=== PATIENT | female | born 1985 | race Asian ===

== ENCOUNTER 2024-05-31 05:40 | Inpatient (IN) ==
--- NOTE | 2024-05-25 08:57 | Anesthesiology Consultation ---
Date of Service May 25, 2024 Assessment & Plan (1) Encounter for pre-operative examination: - Per analyst market intelligence on 05/25/24: No known infectious disease contacts, current infectious disease symptoms in past 10 days or COVID positive test result in the past 30 days. Chart Review Chart Review: entry level sales representative initiated History Surgery Operation Date: 05/31/24 07:30 Proposed Procedures p Section (Delivery of Baby Through Abdominal Incision) - Jocelyne Su MD Height/Weight Height: 5 ft 4 in Weight: 71.214 kg Allergies Allergy/AdvReac Type Severity Reaction Status Date / Time No Known Allergies Allergy Verified 05/25/24 08:20 Medications Home Medications Medication Instructions Recorded Confirmed Last Taken PNV [id number] 1 dose PO QAM 10/17/23 05/25/24 Unknown [ Gummies] acetone (urine) test (Ketone Urine #50 ea 03/15/24 05/21/24 Unknown Test strips) Accu-Chek Guide Glucose Meter #1 ea 03/26/24 05/21/24 Unknown (blood-glucose meter) Accu-Chek Guide test strips (blood #150 ea 03/26/24 05/21/24 Unknown sugar diagnostic) Accu-Chek Softclix Lancets #200 ea 03/26/24 05/21/24 Unknown (lancets) Past Medical History Medical History (Updated 05/25/24 @ 08:55 by Alessandra Thayer PA-C) Gestational diabetes no medications, monitoring Seasonal allergies Past Family History Family History Other No family history of adverse response to anesthesia Denies family history of Ovarian cancer Breast cancer Colorectal cancer Past Surgical History Surgical History S/P section r/t breech present Social History Smoking Status: Never smoker Do You Dip or Chew Tobacco: No Hx Alcohol Use: No Hx Substance Use: No substance use type: does not use
[2024-05-31] MEDS ORDERED: ceFAZolin 2000MG 2,000 MG/15 ML SYR IV SCH (06:00)
[2024-05-31] MEDS ORDERED: LACTATED RINGER'S 1,000 ML IV SCH ×2 (06:00→12:15)
[2024-05-31] MEDS ORDERED: KETOROLAC 30 MG/ML VIAL ONE (06:14)
[2024-05-31] MEDS ORDERED: MoRPHine SULFATE PF 1 MG/ML 10 ML AMP/VIAL ONE (06:14)
[2024-05-31] MEDS ORDERED: fentaNYL citrate PF 100 MCG/2 ML VIAL ONE (06:14)
[2024-05-31] MEDS ORDERED: ONDANSETRON INJ 2 MG/ML 2 ML VIAL ONE (06:14)
[2024-05-31] MEDS ORDERED: OXYTOCIN 10 UNITS/ML VIAL ONE (06:14)
[2024-05-31] MEDS ORDERED: PHENYLEPHRINE HCL 25 MG/250 ML NSS IV ONE (06:14)
[2024-05-31] MEDS: LACTATED RINGER'S 1,000 ML IV SCH ×2 (06:57→19:28)
[2024-05-31] MEDS: ACETAMINOPHEN 500 MG TAB PO SCH (06:57)
[2024-05-31 07:00] LABS: Basophils # (auto) 0.06 K/uL (0.00-0.20); Basophils % (auto) 0.6 %; Eosinophils # (auto) 0.28 K/uL (0.00-0.50); Eosinophils % (auto) 2.8 %; Hematocrit (blood only) 35.2 % (37.0-47.0); Hemoglobin 11.9 g/dl (12.0-16.0); Immature Granulocytes # (auto) 0.09 K/uL (0.01-0.20); Immature Granulocytes % (auto) 0.9 %; Lymphocytes # (auto) 2.17 K/uL (1.20-3.40); Lymphocytes % (auto) 21.7 %; Mean Corpuscular Hemoglobin 31.1 pg (25.0-34.0); Mean Corpuscular Hgb Conc 33.8 g/dL (32.0-36.0); Mean Corpuscular Volume 91.9 fL (80.0-100.0); Monocytes # (auto) 0.76 K/uL (0.11-0.59); Monocytes % (auto) 7.6 %; Neutrophils # (auto) 6.66 K/uL (1.40-6.50); Neutrophils % (auto) 66.4 %; Platelet Count 265 K/uL (130-400); RDW Coefficient of Variation 13.2 % (11.5-14.5); RDW Standard Deviation 43.9 fL (36.4-46.3); Red Blood Count 3.83 M/uL (4.20-5.40); White Blood Count 10.02 K/ul (4.8-10.8)
--- NOTE | 2024-05-31 07:22 | History & Physical Bridge Note ---
Date of Service May 31, 2024 History & Physical Bridge Note I have examined the patient, reviewed the History & Physical and in the interval since the performance of the History & Physical I have noted the following changes of clinical significance: no changes noted
[2024-05-31] MEDS: ceFAZolin 2,000 MG in SYRINGE 0 ML IV SCH (07:26)
[2024-05-31] MEDS: CITRIC ACID/SODIUM CITRATE 15 ML UDC PO SCH (07:26)
[2024-05-31] MEDS ORDERED: DEXAMETHASONE SOD INJ 4 MG/ML VIAL ONE (07:53)
[2024-05-31] MEDS ORDERED: ePHEDrine sulfate 50 MG/5 ML SYR ONE (07:53)
[2024-05-31] MEDS ORDERED: NALOXONE HCL 1 MG in SODIUM CHLORIDE 0.9% 1,000 ML IV PRN (07:54)
[2024-05-31] MEDS ORDERED: NALOXONE HCL 0.4 MG/1 ML VIAL/CARP IV PRN (07:54)
[2024-05-31] MEDS ORDERED: NALOXONE HCL 0.08 MG in SYRINGE 1.8 ML IV PRN (07:54)
[2024-05-31] MEDS ORDERED: diphenhydrAMINE 50 MG/ML VIAL IV PRN (07:54)
[2024-05-31] MEDS ORDERED: PROMETHAZINE 6.25 MG/50.25 ML BAG IV PRN (07:54)
[2024-05-31] MEDS ORDERED: NALBUPHINE HCL INJ 10 MG/ML AMP IV PRN (07:54)
[2024-05-31] MEDS ORDERED: ePHEDrine sulfate 50 MG/ML AMP IV PRN (07:54)
[2024-05-31] MEDS ORDERED: ONDANSETRON INJ 2 MG/ML 2 ML VIAL IV PRN (07:54)
[2024-05-31] MEDS ORDERED: HYDROmorphone INJ 0.5 MG/0.5 ML SYR IV PRN (07:54)
[2024-05-31] MEDS ORDERED: NO NARCOTICS OR SEDATIVES SCH (08:00)
[2024-05-31] MEDS ORDERED: DC INTRASPINAL MORPHINE SCH (08:00)
--- NOTE | 2024-05-31 08:22 | Operative Report ---
Post Operative Report Pre & Post Diagnosis Operation Date: 05/31/24 07:30 Pre-Op Diagnosis: History of Section Post-Op Diagnosis: History of Section; desire for repeat section I identified the patient and participated in the time-out.: Yes Procedure Operation Date: 05/31/24 07:30 Actual Procedures Low Transverse Repeat Section; delivery of live female at 0755 - Jocelyne Su MD Surgeon Jocelyne Su MD Vice President Quality Improvement Cony Quantitative Blood Loss (QBL) 329 Findings Consistent with Post-Op Diagnosis Specimens Placenta, cord blood Anesthesia Type Spinal Complications none Disposition Accompanied Patient To Recovery: Yes Disposition: L&D Description of Procedure The patient was placed operating table in the supine position with a leftward tilt. She was prepped and draped in standard sterile fashion. The anesthetic was tested and found to be adequate. A time-out was held, identifying correct patient, procedure, positioning and preoperative antibiotics. There were no concerns. A Pfannenstiel skin incision was made with a knife and taken down to the underlying layer of fascia, excising the existing cicatrix. The fascia was incised in the midline with the knife and taken out laterally with scissors. The superior edge of the fascial incision was grasped, elevated and dissected off the underlying rectus both superiorly and inferiorly. The muscles were bluntly in the midline. The peritoneum was entered bluntly. The incision was then stretched. The bladder retractor was placed. The vesicouterine peritoneum was identified, entered with scissors and taken out laterally with scissors. The bladder flap was created digitally. A hysterotomy incision was created transversely in the lower uterine segment, final entry being accomplished in a blunt manner with the loop machine operator's fingers. The lower uterine segment myometrium was notably thin; a single swipe with the scalpel exposed amnion. Clear amniotic fluid was encountered. The loop machine operator's hand was used to elevate the head to the hysterotomy. The head was delivered using mild fundal pressure, and the shoulders and body followed without difficulty. The cord was clamped and cut and the infant was then handed off to the awaiting bobbin marker. Cord blood was obtained. The placenta was Manually extracted. The uterus was exteriorized and cleared of all clot and debris with moistened laparotomy sponges. The hysterotomy incision was repaired in two layers, the first in a running locked layer, the second in an imbricating layer. The ovaries and tubes were seen to be normal bilaterally. The uterus was gently replaced in the abdomen, and the gutters were cleared of clot and debris. A final inspection of the hysterotomy revealed good hemostasis. The rectus muscles were allowed to reapproximate naturally. The fascia was then reapproximated with 1 Vicryl in a running nonlocked manner. The fascia was examined and found to be free of defect following closure. The marquez bcutaneous tissue was copiously irrigated and reapproximated with 0-chromic, then the skin edges were closed with 4-0 monocryl in a subcuticular fashion. A dermabond dressing was applied. The nolan was found to be draining clear yellow urine at completion of the procedure. I attest to the content of the Intraoperative Record and any orders documented therein. Any exceptions are noted below. I attest to the content of the Intraoperative Record and any orders documented therein. Any exceptions are noted below. OB Procedure Charges 22897
[2024-05-31] MEDS ORDERED: LANCETS SCH (08:40)
--- NOTE | 2024-05-31 09:27 | Anesthesiology Progress Note ---
Date of Service May 31, 2024 Anesthesia Post Procedure Vital Signs Vital Signs: Temp Pulse Resp BP Pulse Ox 05/31/24 09:21 75 97 05/31/24 09:16 78 100/53 L 97 05/31/24 09:11 81 97 05/31/24 09:06 76 102/51 L 97 05/31/24 09:01 64 99 05/31/24 08:56 63 98/52 L 99 05/31/24 08:51 63 99 05/31/24 08:48 63 90/55 L 05/31/24 08:47 63 87/42 L 05/31/24 08:46 71 99 05/31/24 08:41 65 99 05/31/24 08:37 70 91/53 L 05/31/24 08:36 100 05/31/24 08:36 68 05/31/24 08:36 65 84/52 L 05/31/24 08:31 71 100 05/31/24 08:27 74 99/48 L 05/31/24 08:26 74 99 05/31/24 06:18 88 117/57 L 05/31/24 05:56 88 117/57 L 05/31/24 05:50 16 05/31/24 05:50 98.1 F 16 Transfer of Care Handoff Completed per policy Notes Mental Status: alert / awake / arousable and participated in evaluation Patient Amnestic to Procedure: No Nausea / Vomiting: adequately controlled Pain: adequately controlled Airway Patency, RR, SpO2: stable & adequate BP & HR: stable & adequate Hydration State: stable & adequate Neuraxial Anesthesia: was administered and sensory block is resolving Anesthetic Complications: no major complications apparent and Pt Satisfied with anesthetic care
[2024-05-31] MEDS ORDERED: CALCIUM CARBONATE 500 MG CHEWABLE TAB PO PRN (12:12)
[2024-05-31] MEDS ORDERED: MAGNESIUM HYDROXIDE SUSP 30 ML UDC PO PRN (12:12)
[2024-05-31] MEDS ORDERED: HYDROCORTISONE ACETATE 25 MG SUPP PR PRN (12:12)
[2024-05-31] MEDS ORDERED: BENZOCAINE 20% SPRY 85 APPLN/85 GM CAN EXT PRN (12:12)
[2024-05-31] MEDS ORDERED: SENNA 8.6 MG TAB PO PRN (12:12)
[2024-05-31] MEDS ORDERED: OXYTOCIN 10 UNITS in LACTATED RINGER'S 1,000 ML IV SCH (12:15)
[2024-05-31] MEDS ORDERED: OXYTOCIN 30 UNITS/LR 1,003 ML IV SCH (12:15)
[2024-05-31] MEDS: KETOROLAC 30 MG/ML VIAL IV SCH (14:27)
[2024-05-31] MEDS: KETOROLAC 30 MG/ML VIAL IV PRN (14:27)
[2024-05-31] MEDS: SIMETHICONE 80 MG CHEW PO SCH (14:27)
[2024-05-31] MEDS: MoRPHine SULFATE PF 1 MG/ML 10 ML AMP/VIAL INT SPINAL ONE (19:24)
[2024-05-31] MEDS: DIPHTHER/TETAN/PERTUS Vaccine (Tdap, Adol/Adult) 0.5mL IM ONE (19:33)
[2024-05-31] MEDS: DOCUSATE SODIUM 100 MG CAP PO SCH (21:53)
[2024-05-31] MEDS: ACETAMINOPHEN 325 MG TAB PO SCH (21:53)
[2024-06-01] MEDS ORDERED: PROMETHAZINE 12.5 MG/50.5 ML BAG IV PRN (01:54)
[2024-06-01] MEDS ORDERED: diphenhydrAMINE Capsule 25 MG CAP PO PRN (01:54)
[2024-06-01] MEDS ORDERED: HYDROmorphone INJ 0.5 MG/0.5 ML SYR IV PRN (01:54)
[2024-06-01] MEDS ORDERED: ONDANSETRON INJ 2 MG/ML 2 ML VIAL IV PRN (01:54)
[2024-06-01] MEDS ORDERED: diphenhydrAMINE 50 MG/ML VIAL IV PRN (01:54)
[2024-06-01] MEDS ORDERED: oxyCODONE HCL IR 5 MG TAB (IMMEDIATE RELEASE) PO PRN (01:54)
--- NOTE | 2024-06-01 06:01 | Obstetrical Progress Note ---
Date of Service <Bryn Choemanuel - Last Filed: 06/01/24 07:06> June 01, 2024 Assessment & Plan <Bryn DixonDO cherelle - Last Filed: 06/01/24 07:06> (1) state: Patient is a 38yo pp day 1 s/p for desire to have repeat c- section. Feels well today, BP slightly low but otherwise VSS Continue care Ambulation and as tolerated Pain control Incision site care Hgb: 11.9 on 05/31, asymptomatic Home: possibly Tuesday Follow up with Dr. Su in 6wks. <Jocelyne Su MD - Last Filed: 06/01/24 07:40> (1) state: Subjective <Bryn Dixoncherelle - Last Filed: 06/01/24 07:06> Patient is a 38yo pp day 1 s/p for desire to have repeat c- section. Ambulation: yes Voiding: urinating as of this morning, no BM yet Passing gas: yes Diet tolerance: yes, OB reg Lochia: steady Feeding type: breast, open to bottle/formula if necessary Current pain: denies Resting comfortably this AM in NAD. Denies fever, chills, headache, vision changes, chest pain, SOB, abdominal pain, LE pain/swelling, or LE numbness/tingling. Review of Systems as above Physical Exam <Bryn Dixoncherelle - Last Filed: 06/01/24 07:06> General: A&Ox4, resting comfortably in NAD, nontoxic in appearance Skin: warm, dry, intact; low transverse incision site healing well with no bleeding or swelling, no tenderness to palpation HEENT: NC/AT, anicteric sclerae, conjunctiva w/o injection, moist mucous membranes Heart: +s1/s2, RRR, no m/r/g Lungs: equal air entry b/l, clear to auscultation b/l, no wheeze, rales, or rhonchi Abd: +BS, soft, uterine fundus firm, 1 fingerwidth superior to umbilicus, mildly tender to palpation Ext: no significant swelling, no erythema or tenderness to palpation; no cyanosis or clubbing Neuro: speech intact, no facial droop, moves all extremities on command Results & Data <Bryn Sky DO - Last Filed: 06/01/24 07:06> Vital Signs (Past 12 Hours) Vital Signs Temp Pulse Pulse Resp BP Pulse Ox O2 Del Method 06/01/24 03:25 36.7 C 65 16 90/54 L 96 Room Air 06/01/24 00:30 16 97 05/31/24 23:06 36.7 C 62 18 95/57 L 96 Room Air 05/31/24 22:30 16 95 05/31/24 21:30 16 95 05/31/24 20:35 16 97 05/31/24 19:35 36.6 C 65 16 98/59 L 96 Room Air 05/31/24 19:02 36.7 C 62 16 95/59 L 97 Room Air 05/31/24 18:35 18 95 Supervising Physician <Jocelyne Su MD - Last Filed: 06/01/24 07:40> Co-Signing Physician Notes Resident Physician Supervision Note: I interviewed and examined the patient. Discussed with Dr. Sky and agree with findings and plan as documented in the note. Any exceptions or clarifications are listed here: [ ] Documented By: Jocelyne Su MD, FACOG Resident Activity Tracking <Bryn Sky DO - Last Filed: 06/01/24 07:06> Resident Involvement: Resident Care Provided Care Provided: OB Delivery
[2024-06-01 08:09] LABS: Basophils # (auto) 0.04 K/uL (0.00-0.20); Basophils % (auto) 0.4 %; Eosinophils # (auto) 0.16 K/uL (0.00-0.50); Eosinophils % (auto) 1.4 %; Hematocrit (blood only) 29.3 % (37.0-47.0); Immature Granulocytes # (auto) 0.07 K/uL (0.01-0.20); Immature Granulocytes % (auto) 0.6 %; Lymphocytes # (auto) 2.58 K/uL (1.20-3.40); Mean Corpuscular Hemoglobin 31.5 pg (25.0-34.0); Mean Corpuscular Hgb Conc 34.1 g/dL (32.0-36.0); Mean Corpuscular Volume 92.4 fL (80.0-100.0); Mean Platelet Volume 10.4 fL (9.4-12.4); Monocytes # (auto) 0.85 K/uL (0.11-0.59); Monocytes % (auto) 7.6 %; Neutrophils # (auto) 7.54 K/uL (1.40-6.50); Platelet Count 232 K/uL (130-400); RDW Coefficient of Variation 13.4 % (11.5-14.5); RDW Standard Deviation 44.8 fL (36.4-46.3); Red Blood Count 3.17 M/uL (4.20-5.40); White Blood Count 11.24 K/ul (4.8-10.8)
[2024-06-01] MEDS: KETOROLAC 30 MG/ML VIAL ONE (09:40)
[2024-06-01] MEDS: PRENATAL VITAMIN 1 TAB PO SCH (09:40)
[2024-06-01] MEDS: FERROUS SULFATE 325 MG TAB PO SCH (09:41)
[2024-06-01] MEDS: IBUPROFEN 600 MG TAB PO SCH (17:14)
[2024-06-01] MEDS: bisacodyL 5 MG TABEC PO SCH (20:34)
--- NOTE | 2024-06-02 06:21 | Obstetrical Progress Note ---
Date of Service <Bryn HinesEsperanza Sky DO - Last Filed: 06/02/24 08:11> June 02, 2024 Assessment & Plan <Bryn HinesEsperanza Sky DO - Last Filed: 06/02/24 08:11> (1) state: Patient is a 38yo pp day 2 s/p for elective repeat . Feels well today, VSS. Continue care Ambulation and as tolerated Pain control Incision site care Hgb: 11.9 -> 10.0, asymptomatic Ordered Zyrtec 10mg daily and flonase nasal spray 1 spray ea nostril BID for environmental allergy symptoms Home: tomorrow Follow up with Dr. Su in 6wks. <Mali Robbins MD, FACOG - Last Filed: 06/02/24 08:22> (1) state: Subjective <Bryn HinesEsperanza Sky DO - Last Filed: 06/02/24 08:11> Patient is a 38yo pp day 2 s/p for elective repeat . Ambulation: yes Voiding: urinating as of this morning, no BM yet Passing gas: yes Diet tolerance: yes, OB reg Lochia: steady Feeding type: breast, open to bottle/formula if necessary Current pain: mild abdominal Rubella immune, Rh+ no rhogam. Resting comfortably this AM in NAD, states she has felt a moving sensation in her belly when went to bathroom to urinate, denies pain. Denies fever, chills, headache, vision changes, chest pain, SOB, abdominal pain, LE pain/swelling, or LE numbness/tingling. Review of Systems as above Physical Exam <Bryn HinesEsperanza Sky DO - Last Filed: 06/02/24 08:11> General: A&Ox4, resting comfortably in NAD, nontoxic in appearance Skin: warm, dry, intact; low transverse incision site healing well with no erythema/swelling/bleeding/oozing, no tenderness to palpation HEENT: NC/AT, anicteric sclerae, conjunctiva w/o injection, moist mucous membranes Heart: +s1/s2, RRR, no m/r/g Lungs: equal air entry b/l, clear to auscultation b/l, no wheeze, rales, or rhonchi Abd: +BS, soft, uterine fundus firm, at level of umbilicus, mildly tender to palpation Ext: no significant swelling, no erythema or tenderness to palpation; no cyanosis or clubbing Neuro: speech intact, no facial droop, moves all extremities on command Results & Data <Bryn Sky DO - Last Filed: 06/02/24 08:11> Vital Signs (Past 12 Hours) Vital Signs Temp Pulse Pulse Resp BP Pulse Ox O2 Del Method 06/02/24 00:45 36.8 C 63 18 95 Room Air 06/01/24 19:25 36.7 C 61 18 100/62 97 Room Air Supervising Physician <Mali Robbins MD, FACOG - Last Filed: 06/02/24 08:22> Co-Signing Physician Notes Resident Physician Supervision Note: I was present with Dr. Sky during the history and exam. I discussed the case with the resident and agree with the findings and plan as documented in the note. Any exceptions or clarifications are listed here: pt seen and having what she feels is allergy, also some anterior wall pain, pain with cough. apparently trying to move bowels. abd soft appro tender ff 2 down. ext nt calves. pod #2 s/p c/s and doing well, hgb stable. needs to use pain meds and move more, can help bowels as well. will try meds for allergy to help and pt request mask. routine care. Rhpos/RI/breast. Documented By: Mali Robbins MD, FACOG Resident Activity Tracking <Bryn Sky DO - Last Filed: 06/02/24 08:11> Resident Involvement: Resident Care Provided Care Provided: OB Delivery
[2024-06-02 07:57] VITALS: RESP 16
[2024-06-02 09:08] LABS: Hematocrit (blood only) 34.3 % (37.0-47.0); Hemoglobin 11.1 g/dl (12.0-16.0)
[2024-06-02] MEDS: FLUTICASONE PROPIONATE NA SPR 16 GM BTL SCH (10:15)
[2024-06-02] MEDS: CETIRIZINE HCL 10 MG TABLET PO SCH (10:15)
[2024-06-02] MEDS ORDERED: IBUPROFEN 600 MG TAB PO PRN (12:12)
[2024-06-02] MEDS ORDERED: bisacodyL 10 MG SUPP PR PRN (12:12)
[2024-06-02] MEDS ORDERED: ACETAMINOPHEN 325 MG TAB PO PRN (18:12)
[2024-06-02 23:25] VITALS: O2SAT 97
--- NOTE | 2024-06-03 08:04 | Obstetrical Progress Note ---
Date of Service June 03, 2024 Assessment & Plan (1) state: Postoperative from section patient meets discharge criteria as she is ambulating well tolerating an oral diet has minimal bleeding and no extremity pain. Discharge instructions were reviewed and prescriptions were sent to her pharmacy of choice patient advised to call with any concerns and follow-up in the office discussed Subjective Ambulation: ambulating normally Voiding: no voiding problems Passing Gas:: Yes Diet Tolerance:: regular diet Lochia:: Small Physical Exam Constitutional WD/WN, vitals as above well developed and well nourished Respiratory normal respiratory effort, lungs clear to auscultation normal respiratory effort Cardiovascular RRR, no murmur, no edema Gastrointestinal (Abdomen) normal bowel sounds, soft, nontender, no hepatosplenomegaly Results & Data Vital Signs (Past 12 Hours) Vital Signs Temp Pulse Resp BP Pulse Ox O2 Del Method 06/02/24 23:00 98.2 F 82 16 110/70 97 Room Air
[2024-06-03 09:34] VITALS: BP 101/62; PULSE 62; TEMP 97.7
--- NOTE | 2024-06-05 07:39 | Discharge Summary ---
Date of Service June 05, 2024 Discharge Data Consultations 05/31/24 05:59 Consult Anesthesiology Stat Procedures Performed Operation Date: 05/31/24 07:30 Actual Procedures p Section; delivery of live female at 0755 - Jocelyne Su MD Hospital Course (1) state: Postoperative from section patient meets discharge criteria as she is ambulating well tolerating an oral diet has minimal bleeding and no extremity pain. Discharge instructions were reviewed and prescriptions were sent to her pharmacy of choice patient advised to call with any concerns and follow-up in the office discussed Supervising Physician Co-Signing Physician Notes Resident Physician Supervision Note: I was present with Dr. Sky during the history and exam. I discussed the case with the resident and agree with the findings and plan as documented in the note. Any exceptions or clarifications are listed here: pt seen and having what she feels is allergy, also some anterior wall pain, pain with cough. apparently trying to move bowels. abd soft appro tender ff 2 down. ext nt calves. pod #2 s/p c/s and doing well, hgb stable. needs to use pain meds and move more, can help bowels as well. will try meds for allergy to help and pt request mask. routine care. Rhpos/RI/breast. Documented By: Mali Robbins MD, FACOG Coding Level of Care Code None Diagnoses state Z39.2
== END 2024-06-03 12:55 | disposition home or self-care (01) | DRG 788 ==
LOC: 4S1 05:40 → EDSTATUS 07:30 → 4E2 11:34
DX: O24.420 Gestational diabetes mellitus in childbirth, diet controlled; Z37.0 Single live birth; Z3A.40 40 weeks gestation of pregnancy; O34.211 Maternal care for low transverse scar from previous cesarean delivery